=== PATIENT | female | born 1970 | race Caucasian/White ===

== ENCOUNTER 2018-10-30 16:55 | Emergency (ER) | payer OTHER ==
[~2018-10-30] VITALS: Ht 170.2 cm; Wt 63.5 kg
[2018-10-30] MEDS ORDERED: KETO10TA2 PO (19:04)
== END 2018-10-30 19:53 | disposition home or self-care (01) ==
LOC: ER 16:55
DX: S93.492A Sprain of other ligament of left ankle, initial encounter (principal); S80.01XA Contusion of right knee, initial encounter; W18.39XA Other fall on same level, initial encounter; Y93.89 Activity, other specified; Y92.59 Other trade areas as the place of occurrence of the external cause; Y99.8 Other external cause status